=== PATIENT | female | born 1955 | race Caucasian/White ===

== ENCOUNTER → 2017-12-10 | Outpatient (CLI) | payer BC ==
[~2017-12-10] MED LIST: CZR25 PO; INSDGIPEN SC; INSU32MI13 SQ; METF1TAB85 PO; MTR600 PO; OMEG1CHW PO; PENI500T2 PO; PRLSR20 PO; PRVHFAIN INH
--- NOTE | 2017-12-11 14:31 | MAMMOGRAPHY REPORT ---
BILATERAL DIGITAL SCREENING MAMMOGRAM TOMOSYNTHESIS WITH CAD: 12/10/2017 CLINICAL HISTORY: Routine screening. Patient has no complaints. TECHNIQUE: Breast tomosynthesis in addition to standard 2D mammography was performed. Current study w as also evaluated with a Computer Aided Detection (CAD) system. COMPARISON: Comparison is made to exams dated: 03/23/2015 mammogram, 04/27/2013 mammogram, 08/31/2009 ma mmogram - [facility], 06/04/2007, and 11/16/2000 mammogram - [facility] nter. BREAST COMPOSITION: There are scattered areas of fibroglandular density in both breasts. FINDINGS: No suspicious masses, calcifications, or areas of architectural distortion are noted in either breast . There has been no significant interval change compared to prior exams. IMPRESSION: ACR BI-RADS CATEGORY 1: NEGATIVE There is no mammographic evidence of malignancy. A 1 year screening mammogram is recommended.( [id number]) The patient will receive written notification of the results. Some breast cancers are not detected with mammography. A negative mammographic report should not kari y biopsy if a clinically suggestive mass is present. Ruth Foote M.D. ah/:12/10/2017 14:54:40 [employer] Worker: RT Garland(R)(M)(BD), [facility] letter sent: Normal 1/2 BI-RADS Code: ACR BI-RADS Category 1: Negative
== END | disposition home or self-care (01) ==
LOC: C.MAMM 13:12
PROVIDERS: ATTEND Family Medicine
DX: Z12.31 Encounter for screening mammogram for malignant neoplasm of breast (principal)

== ENCOUNTER 2022-06-18 10:37 | Inpatient (IN) ==
[2022-06-18] MEDS ORDERED: SODIUM CHLORIDE 0.9% 1000ML 1,000 ML IV ONE ×2 (11:14→13:10)
--- NOTE | 2022-06-18 11:19 | Emergency Department Note ---
Impression & Plan Right leg weakness, Acute hyperglycemia, Acute UTI, Difficulty in walking ED Provider Note NAME: ISABEL EASTMAN AGE: 66 SEX: F : 1955 ARRIVES VIA: Walk-In INFORMANT: [Patient][] ED PROVIDER(S): [Kali Yung MD] Patient first seen by me at 1100 CHIEF COMPLAINT: Weakness HISTORY OF PRESENT ILLNESS: The patient is a 66-year-old female who states that 1.5 hours ago she moved/slipped and her right leg gave out. She has pressure in her lower back and her right leg feels weak. She did not actually fall. There have been no urinary complaints. She has not had cough, cold or congestion. The patient had something similar happen a few weeks ago however, she felt her symptoms got better much faster than today. Her leg does feel better than it did initially but she still feels weak and has a harder time walking. The patient has no issues with a headache. She does not have issues with her speech or thinking. No right arm weakness. The patient has a history of issues with her back and hip. She has received injections in the hip before, the last injection was about a year ago. PMHx/PSHx: See Below SOCIAL HISTORY: See Below. PHYSICAL EXAM: GENERAL: Patient is in no acute distress. HEENT: No acute trauma, normocephalic atraumatic, mucous membranes moist, no nasal congestion. NECK: No stridor, no adenopathy, no meningismus, trachea is midline. LUNGS: Clear to auscultation bilaterally, no wheeze, no rhonchi, breath sounds equal. HEART: Without murmurs gallops or rubs, regular rate and rhythm. ABDOMEN: Soft, nontender, bowel sounds positive, no peritonitis. EXTREMITIES: No cyanosis or edema, full range of motion of all the joints witho ut pain or difficulty, no signs for acute trauma. NEUROLOGIC: Oriented x 3, no speech slur or facial droop. No lower extremity cerebellar dysfunction or drift. She has 2/4 reflexes at the patella and Achilles bilaterally. Her great toe strength is equal bilaterally, plantarflexion is equal bilaterally. She can walk but seems to have a bit of a limp because of what is described as right leg weakness. SKIN: No rash, no jaundice, no diaphoresis. DIFFERENTIAL DIAGNOSIS: Lumbar disc herniation, lumbar strain, hip strain, fracture, electrolyte imbalance, UTI, stroke, among others. EMERGENCY DEPARTMENT COURSE/PROCEDURES: Prior/Outside records reviewed: None. MEDICAL DECISION MAKING: There is no leukocytosis or concerning anemia. There is a normal platelet count. No coagulopathy. No renal failure. Glucose was high at 347. No concerning liver enzyme elevation. The patient appeared to be in a euthyroid state. Urinalysis was suggestive of potential infection. COVID test returned negative. Brain CT showed no acute bleed or mass effect. Lumbar spine CT showed no acute fracture or significant bony pathology. Chest x-ray per my review did not show CHF or pneumonia. Right hip and pelvis films showed some arthritis, no fracture or bony dislocation per my review. On exam, the patient had a hard time walking because of her right leg weakness but, there was no cerebellar dysfunction with the right lower extremity or right lower extremity drift. She had no deficits in her upper extremities, no speech slur or facial droop. She complained of pain and pressure in the right lumbar back. The patient received IV saline, 2 L. She received IV insulin because of the higher sugar value. She was given oral Keflex because of her potential UTI. I did reassess the patient several times, she persists with some right leg weakness and difficulty ambulating. I am not comfortable with discharge home. At this point, the cause for the isolated right lower extremity weakness is unclear. Subtle stroke is a consideration, disc disease with nerve impingement is a consideration. Transverse myelitis is a possibility. Further testing/work-up is warranted. Of note, the patient was not made a stroke alert given the very isolated right lower extremity weakness. I could not find a significant deficit with testing of the right lower extremity. The only finding of note was difficulty with ambulation. tPA was not felt warranted given the very subtle presentation. I spoke to the patient about my concerns and about the need for further work-up. I did speak with case management, the on-call hospitalist was consulted. DISPOSITION: Patient's findings and presentation warrant a hospital stay and further work-up. Past Med/Surg History Medical History Anxiety Asthma Cataract Depression Diabetes mellitus, type 2 IDDM Fatty liver GERD (gastroesophageal reflux disease) Hemorrhoids History of bursitis RT HIP History of DVT (deep vein thrombosis) LLE - >30 YEARS AGO History of migraine with aura HTN (hypertension) Hyperlipidemia NO MEDS Osteoarthritis Phlebitis H/O Sciatica TMJ click Surgical History H/O nephrostomy History of ankle surgery LEFT X 2, RT X 1 History of arthroscopy of left knee X 2 History of cholecystectomy History of colonoscopy History of D&C MULT History of exploratory laparotomy History of eye surgery RT - as a child History of left cataract surgery History of tooth extraction Nausea and vomiting after administration of anesthetic agent Family History Father Slow to wake up after anesthesia Social History Smoking Status: Former smoker Tobacco Type: Cigarettes Second Hand Exposure: No; Hx Alcohol Use: Yes Hx Substance Use: No Preferred Language: Malagasy Communication Ability: Effective Chemical Processor Required: No Beliefs That Will Affect Care: None Current Living Situation: Spouse Feels Safe at Home: Yes Assistive Devices: Cane and Glasses Allergies Allergies Allergy/AdvReac Type Severity Reaction Status Date / Time psyllium Allergy Severe Anaphylaxis Verified 06/18/22 15:00 latex Allergy Intermediate itching Verified 06/18/22 15:00 pollen extracts Allergy Intermediate SNEEZING, Verified 06/18/22 15:00 CONGESTION walnut Allergy Mild Cough Verified 06/18/22 15:00 meperidine AdvReac Intermediate Gastrointestinal Verified 06/18/22 15:00 Upset onion AdvReac Intermediate Gastrointestinal Verified 06/18/22 15:00 Upset semaglutide [From Ozempic] AdvReac Intermediate Gastrointestinal Verified 06/18/22 15:00 Upset Ngjyryz-[id number]-TmD Reductase AdvReac Intermediate Muscle Pain Verified 06/18/22 15:00 Inhibitor [Cljasrv-Zlx-Bra Reductase Inhibitor] insecticides Allergy Severe Anaphylaxis Uncoded 06/18/22 15:00 Home Meds Home Medications Medication Instructions Recorded Confirmed acetaminophen 500 mg tablet 500 mg PO Q6H PRN Pain 05/20/19 06/18/22 (Tylenol Extra Strength) albuterol sulfate 90 mcg/actuation 2 inh inhalation QID PRN sob 05/20/19 06/18/22 aerosol inhaler hydrochlorothiazide 12.5 mg capsule 12.5 mg PO QA 05/20/19 06/18/22 ibuprofen 600 mg tablet 600 mg PO Q6H PRN Pain 05/20/19 06/18/22 insulin glargine 100 unit/mL (3 18 unit subcut QA 05/20/19 06/18/22 mL) subcutaneous pen (Lantus Solostar U-100 Insulin) losartan 25 mg tablet 25 mg PO [facility] 05/20/19 06/18/22 omeprazole magnesium 20 mg 20 mg PO [facility] 05/20/19 06/18/22 tablet,delayed release (Prilosec OTC) Results & Data (ED) Vital Signs Vital Signs - 24 hr 06/18/22 10:38 06/18/22 12:33 06/18/22 11:24 Temperature 36.2 C L Temperature Source Temporal Artery Scan Pulse Rate 101 H 85 96 H Pulse Rate from SpO2 Sensor 96 H Respiratory Rate 20 14 Respiratory Effort / Characteristics Non-Labored Spontaneous Respiratory Depth Normal Blood Pressure 181/82 H Blood Pressure Mean 115 Pulse Oximetry 100 98 Oxygen Delivery Method Room Air Sepsis New/Unexplained Change in Mental Status N/A Sepsis Action Taken by Nursing No Action Required 06/18/22 11:30 06/18/22 11:54 06/18/22 12:00 Temperature Temperature Source Pulse Rate 104 H 87 Pulse Rate from SpO2 Sensor 103 H 103 H 88 Respiratory Rate 15 14 Respiratory Effort / Characteristics Respiratory Depth Blood Pressure Blood Pressure Mean Pulse Oximetry 98 100 99 Oxygen Delivery Method Sepsis New/Unexplained Change in Mental Status Sepsis Action Taken by Nursing 06/18/22 12:10 06/18/22 12:20 06/18/22 12:30 Temperature Temperature Source Pulse Rate 95 H 89 90 Pulse Rate from SpO2 Sensor 95 H 88 90 Respiratory Rate 12 16 17 Respiratory Effort / Characteristics Respiratory Depth Blood Pressure Blood Pressure Mean Pulse Oximetry 98 98 98 Oxygen Delivery Method Sepsis New/Unexplained Change in Mental Status Sepsis Action Taken by Nursing 06/18/22 12:40 06/18/22 12:47 06/18/22 12:47 Temperature Temperature Source Pulse Rate 92 H 82 Pulse Rate from SpO2 Sensor 92 H 85 Respiratory Rate 15 17 Respiratory Effort / Characteristics Respiratory Depth Blood Pressure 164/68 H Blood Pressure Mean 100 Pulse Oximetry 99 98 Oxygen Delivery Method Sepsis New/Unexplained Change in Mental Status Sepsis Action Taken by Nursing 06/18/22 12:50 06/18/22 13:00 06/18/22 13:00 Temperature Temperature Source Pulse Rate 93 H 98 H Pulse Rate from SpO2 Sensor 94 H 97 H Respiratory Rate 14 17 Respiratory Effort / Characteristics Respiratory Depth Blood Pressure 168/93 H Blood Pressure Mean 118 Pulse Oximetry 100 97 Oxygen Delivery Method Sepsis New/Unexplained Change in Mental Status Sepsis Action Taken by Nursing 06/18/22 13:22 06/18/22 13:34 06/18/22 13:40 Temperature Temperature Source Pulse Rate 86 101 H 88 Pulse Rate from SpO2 Sensor 97 H 88 Respiratory Rate 6 L 19 12 Respiratory Effort / Characteristics Respiratory Depth Blood Pressure Blood Pressure Mean Pulse Oximetry 98 98 Oxygen Delivery Method Sepsis New/Unexplained Change in Mental Status Sepsis Action Taken by Nursing 06/18/22 13:50 06/18/22 14:00 06/18/22 14:00 Temperature Temperature Source Pulse Rate 90 87 Pulse Rate from SpO2 Sensor 90 85 Respiratory Rate 14 15 Respiratory Effort / Characteristics Respiratory Depth Blood Pressure 166/86 H Blood Pressure Mean 112 Pulse Oximetry 99 99 Oxygen Delivery Method Sepsis New/Unexplained Change in Mental Status Sepsis Action Taken by Nursing 06/18/22 14:10 06/18/22 14:20 06/18/22 14:30 Temperature Temperature Source Pulse Rate 94 H 95 H Pulse Rate from SpO2 Sensor 96 H 98 H Respiratory Rate 17 22 Respiratory Effort / Characteristics Respiratory Depth Blood Pressure 162/76 H Blood Pressure Mean 104 Pulse Oximetry 99 97 Oxygen Delivery Method Sepsis New/Unexplained Change in Mental Status Sepsis Action Taken by Nursing 06/18/22 14:30 06/18/22 14:40 06/18/22 14:52 Temperature Temperature Source Pulse Rate 87 86 91 H Pulse Rate from SpO2 Sensor 88 84 80 Respiratory Rate 16 16 31 H Respiratory Effort / Characteristics Respiratory Depth Blood Pressure Blood Pressure Mean Pulse Oximetry 97 99 100 Oxygen Delivery Method Sepsis New/Unexplained Change in Mental Status Sepsis Action Taken by Half-Way Medications Current Medication List: was personally reviewed by me Laboratory Data Attestation: I reviewed the patient's lab results. 06/18/22 11:20 06/18/22 11:20 Lab Results 06/18/22 06/18/22 06/18/22 Range/Units 11:20 11:20 11:20 WBC 6.41 (4.8-10.8) K/ul RBC 5.42 H (4.20-5.40) M/uL Hgb 11.0 L (12.0-16.0) g/dl Hct 36.6 L (37.0-47.0) % MCV 67.5 L (80.0-100.0) fL MCH 20.3 L (25.0-34.0) pg MCHC 30.1 L (32.0-36.0) g/dL RDW Std Deviation 40.0 (36.4-46.3) fL RDW Coeff of Omero 17.3 H (11.5-14.5) % Plt Count 405 H (130-400) K/uL MPV 11.0 (9.4-12.4) fL Immature Gran % (Auto) 0.8 % Neut % (Auto) 58.0 % Lymph % (Auto) 28.2 % [place] % (Auto) 7.0 % Eos % (Auto) 4.8 % Baso % (Auto) 1.2 % Neut # (Auto) 3.71 (1.40-6.50) K/uL Lymph # (Auto) 1.81 (1.2-3.4) K/uL [place] # (Auto) 0.45 (0.11-0.59) K/uL Eos # (Auto) 0.31 (0-0.50) K/uL Baso # (Auto) 0.08 (0-0.2) K/uL Immature Gran # (Auto) 0.05 (0.01-0.20) K/uL RBC Morphology Unremarkable Sodium 134 L (136-145) mmol/L Potassium 3.7 (3.5-5.1) mmol/L Chloride 98 (98-107) mmol/L Carbon Dioxide 26 (21-32) mmol/L Anion Gap 10 (3-11) BUN 13 (6-23) mg/dl Creatinine 0.76 (0.6-1.2) mg/dl Est Cr Clr Drug Dosing 57.9 ml/min Est GFR ( Amer) 94.7 ml/min Est GFR (Non-Af Amer) 81.7 ml/min BUN/Creatinine Ratio 17.1 (10-20) Glucose 347 H* (70-99(Fasting)) mg/dl POC Glucose (70-99) mg/dl Calcium 9.6 (8.5-10.1) mg/dl Magnesium 1.8 (1.7-2.4) mg/dl Total Bilirubin 0.4 (0.2-1.0) mg/dl AST 20 (13-39) U/L ALT 23 (7-52) U/L Alkaline Phosphatase 133 H (34-104) U/L Total Protein 7.7 (6.0-8.3) gm/dl Albumin 4.4 (3.4-5.0) gm/dl Globulin 3.3 (2.5-4.0) gm/dl Albumin/Globulin Ratio 1.3 (0.9-2) TSH 1.022 (0.300-4.500) uIu/ml Urine Color Urine Appearance (Clear) Urine pH (4.5-7.5) Ur Specific [place] (1.000-1.030) Urine Protein (Negative) Urine Glucose (UA) (Negative) Urine Ketones (Negative) Urine Blood (Negative) Urine Nitrite (Negative) Urine Bilirubin (Negative) Urine Urobilinogen (Negative) Ur Leukocyte Esterase (Negative) Urine RBC (0-4) /hpf Urine WBC (0-5) /hpf Ur Epithelial Cells (0-5) /lpf Urine Bacteria (Negative) 06/18/22 06/18/22 Range/Units 13:34 13:52 WBC (4.8-10.8) K/ul RBC (4.20-5.40) M/uL Hgb (12.0-16.0) g/dl Hct (37.0-47.0) % MCV (80.0-100.0) fL MCH (25.0-34.0) pg MCHC (32.0-36.0) g/dL RDW Std Deviation (36.4-46.3) fL RDW Coeff of Omero (11.5-14.5) % Plt Count (130-400) K/uL MPV (9.4-12.4) fL Immature Gran % (Auto) % Neut % (Auto) % Lymph % (Auto) % [place] % (Auto) % Eos % (Auto) % Baso % (Auto) % Neut # (Auto) (1.40-6.50) K/uL Lymph # (Auto) (1.2-3.4) K/uL [place] # (Auto) (0.11-0.59) K/uL Eos # (Auto) (0-0.50) K/uL Baso # (Auto) (0-0.2) K/uL Immature Gran # (Auto) (0.01-0.20) K/uL RBC Morphology Sodium (136-145) mmol/L Potassium (3.5-5.1) mmol/L Chloride (98-107) mmol/L Carbon Dioxide (21-32) mmol/L Anion Gap (3-11) BUN (6-23) mg/dl Creatinine (0.6-1.2) mg/dl Est Cr Clr Drug Dosing ml/min Est GFR ( Amer) ml/min Est GFR (Non-Af Amer) ml/min BUN/Creatinine Ratio (10-20) Glucose (70-99(Fasting)) mg/dl POC Glucose 148 H (70-99) mg/dl Calcium (8.5-10.1) mg/dl Magnesium (1.7-2.4) mg/dl Total Bilirubin (0.2-1.0) mg/dl AST (13-39) U/L ALT (7-52) U/L Alkaline Phosphatase (34-104) U/L Total Protein (6.0-8.3) gm/dl Albumin (3.4-5.0) gm/dl Globulin (2.5-4.0) gm/dl Albumin/Globulin Ratio (0.9-2) TSH (0.300-4.500) uIu/ml Urine Color Yellow Urine Appearance Clear (Clear) Urine pH 5.5 (4.5-7.5) Ur Specific [place] 1.007 (1.000-1.030) Urine Protein Negative (Negative) Urine Glucose (UA) 2+ H (Negative) Urine Ketones Negative (Negative) Urine Blood Negative (Negative) Urine Nitrite Negative (Negative) Urine Bilirubin Negative (Negative) Urine Urobilinogen Negative (Negative) Ur Leukocyte Esterase Trace H (Negative) Urine RBC 0-4 (0-4) /hpf Urine WBC 10-30 H (0-5) /hpf Ur Epithelial Cells 5-10 H (0-5) /lpf Urine Bacteria 1+ H (Negative) Administered Medications Discontinued Medications Aspirin (Aspirin 81 Mg Chew) 324 mg PO NOW STA Stop: 06/18/22 15:48 Last Admin: 06/18/22 16:31 Dose: 324 mg Documented By: BRITTANY Cephalexin HCl (Cephalexin 250 Mg Cap) 500 mg PO NOW ONE Stop: 06/18/22 14:16 Last Admin: 06/18/22 15:33 Dose: 500 mg Documented By: AM Sodium Chloride (Nss 1000ml) 1,000 mls @ 999 mls/hr IV .Q1H1M ONE Stop: 06/18/22 12:14 Last Infusion: 06/18/22 13:47 Dose: 0 mls/hr Documented By: Admin: 06/18/22 11:29 Dose: 999 mls/hr Documented By: AM Sodium Chloride (Nss 1000ml) 1,000 mls @ 999 mls/hr IV .Q1H1M ONE Stop: 06/18/22 14:10 Last Infusion: 06/18/22 15:36 Dose: 0 mls/hr Documented By: Admin: 06/18/22 13:47 Dose: 999 mls/hr Documented By: AM Insulin Human Regular (Novolin-R Insulin Per Unit Charge) 8 units IV NOW STA Stop: 06/18/22 12:17 Last Admin: 06/18/22 12:45 Dose: 8 units Documented By: AM Co-signed By: SALTY Ioversol (Optiray 320 500ml) 118 ml IV ONCE ONE Stop: 06/18/22 16:08 Last Admin: 06/18/22 16:10 Dose: 118 ml Documented By: AVANI Imaging Data Radiologist's Impression: Hip/Pelvis X-Ray 06/18/22 11:12 XR hip RT 2V w pelvis HISTORY: 66 years-old Female pain, slipped acute right-sided hip pain status post fall COMPARISON: CT lumbar spine of same day, CT abdomen and pelvis 10/01/2017 TECHNIQUE: AP view of the pelvis with 2 views of the right hip FINDINGS: Mild osteoarthritis of the hips. No acute fracture, dislocation or avascular necrosis. Unremarkable soft tissues. IMPRESSION: No acute fracture or dislocation. ACT 112: Negative or not required by law. The above report was generated using voice recognition software. It may contain grammatical, syntax or spelling errors. Electronically signed by: Silver Stallworth M.D. 06/18/2022 2:[address] 06/18/22 11:12 CT lumbar spine wo con CLINICAL HISTORY: slipped low back pain, right leg weak TECHNIQUE: Multidetector row helical CT of the lumbar spine was performed without administration of intravenous contrast. Coronal and sagittal reformations were obtained. Automated dose lowering techniques and/or adjustment according to patient size were utilized for this exam. CT DOSE: 1186.66 mGy.cm Comparison: None available at the time of this dictation. FINDINGS: For counting purposes, the last complete intervertebral disc space is considered L5-S1. No acute fractures are identified. Degenerative changes are noted in the visualized spine. Vertebral body alignment is within normal limits. Surrounding soft tissues are unremarkable. IMPRESSION: No evidence of acute bony injury. ACT 112: Negative or not required by law. Electronically signed by: Delroy Mcfadden M.D. 06/18/2022 11:59 AM Chest X-Ray 06/18/22 11:13 XR chest 1V not portable HISTORY: weakness COMPARISON: None. FINDINGS: The lungs are clear. Cardiac silhouette is normal in size. No pleural effusions. No pneumothorax. IMPRESSION: No acute process. ACT 112: Negative or not required by law. Electronically signed by: Raudel De La Cruz M.D. 06/18/2022 1:[address] 06/18/22 11:14 CT OF THE HEAD WITHOUT CONTRAST CLINICAL HISTORY: leg weakness COMPARISON STUDY: No previous studies for comparison. TECHNIQUE: Helical axial images of the head were obtained without IV contrast. Automated exposure control was utilized for the study. A dose lowering technique was utilized adhering to the principles of ALARA. FINDINGS: No acute intracranial hemorrhage, midline shift or mass effect is present. White matter hypodensity suggests small vessel disease. The ventricular system is unremarkable. The basal cisterns are patent. No extra-axial collections are present. There are no findings to suggest acute dural sinus thrombosis or acute territorial infarct. No significant calvarial abnormalities are present. Visualized portions of the sinuses and mastoid air cells are clear. IMPRESSION: No acute intracranial findings. ACT 112: Negative or not required by law. Electronically signed by: Bob Strong M.D. 06/18/2022 12:11 PM Discharge Plan Visit Data Chief Complaint: Weakness Stated Complaint: WEAKNESS, R LEG PAIN ED Provider: Kali Yung Discharge Problem: Right leg weakness, Acute hyperglycemia, Acute UTI, Difficulty in walking Patient Disposition: Admitted As Inpatient Condition: Fair Discharge Instructions Interventions: ED Discharge Assessment Last Done: 06/18/22 17:50
--- NOTE | 2022-06-18 12:00 | CT Scan Report ---
CT lumbar spine wo con CLINICAL HISTORY: slipped low back pain, right leg weak TECHNIQUE: Multidetector row helical CT of the lumbar spine was performed without administration of i ntravenous contrast. Coronal and sagittal reformations were obtained. Automated dose lowering techniq ues and/or adjustment according to patient size were utilized for this exam. CT DOSE: 1186.66 mGy.cm Comparison: None available at the time of this dictation. FINDINGS: For counting purposes, the last complete intervertebral disc space is considered L5-S1. No acute fractures are identified. Degenerative changes are noted in the visualized spine. Vertebral body alignment is within normal limits. Surrounding soft tissues are unremarkable. IMPRESSION: No evidence of acute bony injury. ACT 112: Negative or not required by law. Electronically signed by: Delroy Mcfadden M.D. 06/18/2022 11:59 AM
--- NOTE | 2022-06-18 12:12 | CT Scan Report ---
CT OF THE HEAD WITHOUT CONTRAST CLINICAL HISTORY: leg weakness COMPARISON STUDY: No previous studies for comparison. TECHNIQUE: Helical axial images of the head were obtained without IV contrast. Automated exposure con trol was utilized for the study. A dose lowering technique was utilized adhering to the principles o f ALARA. FINDINGS: No acute intracranial hemorrhage, midline shift or mass effect is present. White matter hyp odensity suggests small vessel disease. The ventricular system is unremarkable. The basal cisterns ar e patent. No extra-axial collections are present. There are no findings to suggest acute dural sinus thrombosis or acute territorial infarct. No significant calvarial abnormalities are present. Visualiz ed portions of the sinuses and mastoid air cells are clear. IMPRESSION: No acute intracranial findings. ACT 112: Negative or not required by law. Electronically signed by: Bob Strong M.D. 06/18/2022 12:11 PM
[2022-06-18 12:16] LABS: Basophils # (auto) 0.08 K/uL (0-0.2); Basophils % (auto) 1.2 %; Eosinophils # (auto) 0.31 K/uL (0-0.50); Eosinophils % (auto) 4.8 %; Hematocrit (blood only) 36.6 % (37.0-47.0); Immature Granulocytes # (auto) 0.05 K/uL (0.01-0.20); Immature Granulocytes % (auto) 0.8 %; Lymphocytes # (auto) 1.81 K/uL (1.2-3.4); Lymphocytes % (auto) 28.2 %; Mean Corpuscular Hemoglobin 20.3 pg (25.0-34.0); Mean Corpuscular Hgb Conc 30.1 g/dL (32.0-36.0); Mean Corpuscular Volume 67.5 fL (80.0-100.0); Monocytes # (auto) 0.45 K/uL (0.11-0.59); Neutrophils # (auto) 3.71 K/uL (1.40-6.50); RDW Coefficient of Variation 17.3 % (11.5-14.5); Red Blood Count 5.42 M/uL (4.20-5.40); White Blood Count 6.41 K/ul (4.8-10.8)
[2022-06-18] MEDS ORDERED: NovoLIN-R INSULIN PER UNIT CHARGE IV STA (12:16)
[2022-06-18 12:20] LABS: Albumin Globulin Ratio 1.3 (0.9-2); Albumin Level 4.4 gm/dl (3.4-5.0); BUN Creatinine Ratio 17.1 (10-20); Bilirubin,Total 0.4 mg/dl (0.2-1.0); Calcium 9.6 mg/dl (8.5-10.1); Creatinine Clr Calc Pharmacy 57.9 ml/min; Est GFR (African American) 94.7 ml/min; Est GFR (Non-African American) 81.7 ml/min; Globulin 3.3 gm/dl (2.5-4.0); Potassium 3.7 mmol/L (3.5-5.1); Total Protein 7.7 gm/dl (6.0-8.3)
[2022-06-18 12:25] LABS: Platelet Count 405 K/uL (130-400)
[2022-06-18 12:32] LABS: Magnesium 1.8 mg/dl (1.7-2.4)
[2022-06-18 12:49] LABS: RBC Morphology Unremarkable
--- NOTE | 2022-06-18 13:34 | XRay Report ---
XR chest 1V not portable HISTORY: weakness COMPARISON: None. FINDINGS: The lungs are clear. Cardiac silhouette is normal in size. No pleural effusions. No pneumot horax. IMPRESSION: No acute process. ACT 112: Negative or not required by law. Electronically signed by: Raudel De La Cruz M.D. 06/18/2022 1:33 PM
[2022-06-18 13:51] LABS: Appearance Urine Clear (Clear); Bilirubin Urine Negative (Negative); Blood Urine Negative (Negative); Color Urine Yellow; Glucose Urine UA 2+ (Negative); Ketones Urine Negative (Negative); Leukocyte Esterase Urine Trace (Negative); Nitrite Urine Negative (Negative); Protein Urine Negative (Negative); Specific Gravity Urine 1.007 (1.000-1.030); Urobilinogen Urine Negative (Negative); pH Urine 5.5 (4.5-7.5)
[2022-06-18 14:06] LABS: Bacteria Urine 1+ (Negative); RBC Urine 0-4 /hpf (0-4)
--- NOTE | 2022-06-18 14:06 | XRay Report ---
XR hip RT 2V w pelvis HISTORY: 66 years-old Female pain, slipped acute right-sided hip pain status post fall COMPARISON: CT lumbar spine of same day, CT abdomen and pelvis 10/01/2017 TECHNIQUE: AP view of the pelvis with 2 views of the right hip FINDINGS: Mild osteoarthritis of the hips. No acute fracture, dislocation or avascular necrosis. Unremarkable s oft tissues. IMPRESSION: No acute fracture or dislocation. ACT 112: Negative or not required by law. The above report was generated using voice recognition software. It may contain grammatical, syntax o r spelling errors. Electronically signed by: Silver Stallworth M.D. 06/18/2022 2:04 PM
[2022-06-18] MEDS ORDERED: cephALEXin 250 MG CAP PO ONE (14:15)
--- NOTE | 2022-06-18 15:33 | History & Physical Report ---
Date of Service June 18, 2022 Assessment & Plan (1) Right leg weakness: Plan: Patient is 66-year-old female with PMH HTN, dyslipidemia, insulin-dependent DM II, GERD, NAFLD presented to ER with complaint onset of right leg weakness started this morning In ER patient had difficulty with ambulating secondary to reported right leg weakness. CT head: No acute intracranial findings Lumbar spine CT: No acute fractures are identified. Degenerative changes are noted in the visualized spine. Vertebral body alignment is within normal limits. Surrounding soft tissues are unremarkable. Hip/pelvis x-ray: No acute fracture or dislocation DDX: TIA, CVA, Lumbar spine DDD Tele to monitor for arrhythmias Obtain EKG and troponin Lipid panel, A1c in am CTA Head and Neck MRI brain MRI L-spine If MRI positive for CVA plan to obtain echo with bubble study PT/OT consult Intolerance to statin Given 324mg aspirin Start aspirin Neurology consult (2) Abnormal finding on urinalysis: Plan: UA: Trace leuk esterase, 10-30 WBC, 1+ bacteria, 5-10 epithelial cells This UA was not a clean-catch specimen Patient without urinary symptoms In ER given p.o. Keflex Urine culture pending Will await urine culture prior to additional antibiotics (3) Diabetes mellitus, type 2: Plan: Insulin-dependent A1c 10.0 on 12/10/2021 Continue home Lantus NovoLog sliding scale per protocol Monitor BSG's, may need to further adjust (4) HTN (hypertension): Plan: Continue losartan, HCTZ (5) Dyslipidemia: Plan: Intolerant to statins Lipid panel in a.m. (6) GERD (gastroesophageal reflux disease): Plan: Continue PPI DVT Prophylaxis SCDs Full Code as per discussion with pt Follows with Dr Scott Colindres for routine care Pt was seen and care coordinated with Dr Mueller. See addendum I spent a total of 75 minutes reviewing notes, outpatient records, labs, medication, coordinating, documenting and providing care for this patient excluding time spent in the performance of separately billed services. History of Present Illness Chief Complaint: Right leg weakness Primary Care Provider: Scott Colindres DO Patient is 66-year-old female with PMH HTN, dyslipidemia, insulin-dependent DM II, GERD, NAFLD presented to ER with complaint of right leg weakness. Patient states this morning she woke up and was feeling fine. She reports she showered and then took her morning medicines. When she was attempting to get dressed she had onset of right leg weakness described from right hip to right ankle. Patient reports has some pressure to right lumbar spine. As she was getting dressed she felt her right leg gave out. Patient states since has been having right leg weakness and having difficulty walking. He also feels like she is leaning to the right. Denies speech changes, facial drooping. Patient states couple weeks ago had episode of right leg weakness that occurred while showering that resolved within an hour after sitting. Patient denies any known injury or trauma. Denies leg paresthesias. Denies dysuria, hematuria, urinary frequency, or urgency. Denies fever/chills, diaphoresis, N/V/D/C, CLOUD, dizziness, syncope, vision changes, neck pain, CP, SOB, orthopnea, palpitations, cough, sore throat, choking, otalgia, rhinorrhea, abdominal pain, extremity edema, rashes. In ER patient had difficulty with ambulating secondary to reported right leg weakness. Allergies Allergy/AdvReac Type Severity Reaction Status Date / Time psyllium Allergy Severe Anaphylaxis Verified 06/18/22 15:00 latex Allergy Intermediate itching Verified 06/18/22 15:00 pollen extracts Allergy Intermediate SNEEZING, Verified 06/18/22 15:00 CONGESTION walnut Allergy Mild Cough Verified 06/18/22 15:00 meperidine AdvReac Intermediate Gastrointestinal Verified 06/18/22 15:00 Upset onion AdvReac Intermediate Gastrointestinal Verified 06/18/22 15:00 Upset semaglutide [From Ozempic] AdvReac Intermediate Gastrointestinal Verified 06/18/22 15:00 Upset Mitxqbn-FRJ-ImL Reductase AdvReac Intermediate Muscle Pain Verified 06/18/22 15:00 Inhibitor [Bjnxjzr-Hqg-Dab Reductase Inhibitor] insecticides Allergy Severe Anaphylaxis Uncoded 06/18/22 15:00 Home Medications Medication Instructions Recorded Confirmed Type acetaminophen 500 mg tablet 500 mg PO Q6H PRN Pain 05/20/19 06/18/22 History (Tylenol Extra Strength) albuterol sulfate 90 mcg/actuation 2 inh inhalation QID PRN sob 05/20/19 History aerosol inhaler hydrochlorothiazide 12.5 mg capsule 12.5 mg PO QAM 05/20/19 06/18/22 History ibuprofen 600 mg tablet 600 mg PO Q6H PRN Pain 05/20/19 06/18/22 History insulin glargine 100 unit/mL (3 18 unit subcut QAM 05/20/19 06/18/22 History mL) subcutaneous pen (Lantus Solostar U-100 Insulin) losartan 25 mg tablet 25 mg PO QAM 05/20/19 06/18/22 History omeprazole magnesium 20 mg 20 mg PO QAM 05/20/19 06/18/22 History tablet,delayed release (Prilosec OTC) Past Med/Surg History Medical History Anxiety Asthma Cataract Depression Diabetes mellitus, type 2 IDDM Fatty liver GERD (gastroesophageal reflux disease) Hemorrhoids History of bursitis RT HIP History of DVT (deep vein thrombosis) LLE - >30 YEARS AGO History of migraine with aura HTN (hypertension) Hyperlipidemia NO MEDS Osteoarthritis Phlebitis H/O Sciatica TMJ click Surgical History H/O nephrostomy History of ankle surgery LEFT X 2, RT X 1 History of arthroscopy of left knee X 2 History of cholecystectomy History of colonoscopy History of D&C MULT History of exploratory laparotomy History of eye surgery RT - as a child History of left cataract surgery History of tooth extraction Nausea and vomiting after administration of anesthetic agent Family History Father Slow to wake up after anesthesia Social History Smoking Status: Former smoker Tobacco Type: Cigarettes Second Hand Exposure: No; Do You Dip or Chew Tobacco: No; Tobacco Cessation Education Requested by Patient: No Hx Alcohol Use: Yes Alcohol type: wine Hx Substance Use: No Preferred Language: Latvian Communication Ability: Effective Production Crew Supervisor Required: No Beliefs That Will Affect Care: None Current Living Situation: Family Feels Safe at Home: Yes Assistive Devices: Cane and Glasses Review of Systems Review of Systems: All systems reviewed & are unremarkable except as noted in HPI & below Physical Exam Physical Exam: General: no distress, WDWN Head: normocephalic, atraumatic Eyes: PERRL, EOM's intact, no nystagmus, conjunctiva non-injected, anicteric ENT: normal inspection external ears, nose, mucous membranes moist Neck: supple, trachea midline Lungs: clear, no respiratory distress, no wheezing/rhonchi/rales CV: RRR, no murmur, no JVD, no pretibial edema Abd: normal BS, soft, non-tender Ext: no cyanosis, no calf tenderness Neuro: A&O x 3, normal affect, face is strong and symmetric, hearing grossly intact, soft palate elevates symmetrically, no dysarthria, shoulder shrug intact, tongue is midline, normal movement, no fasciculations Strength RLE 4/5 compared to 5/5 LLE. BUE 5/5 strength. Skin: warm, dry Results & Data Results & Data ([facility]) Vital Signs (Past 12 Hours) Vital Signs Temp Pulse Resp BP Pulse Ox O2 Del Method 06/18/22 13:00 98 H 17 97 06/18/22 13:00 168/93 H 06/18/22 12:50 93 H 14 100 06/18/22 12:47 82 17 98 06/18/22 12:47 164/68 H 06/18/22 12:40 92 H 15 99 06/18/22 12:30 90 17 98 06/18/22 12:20 89 16 98 06/18/22 12:10 95 H 12 98 06/18/22 12:00 87 14 99 06/18/22 11:54 100 06/18/22 11:30 104 H 15 98 06/18/22 11:24 96 H 14 98 06/18/22 12:33 85 06/18/22 10:38 36.2 C L 101 H 20 181/82 H 100 Room Air Laboratory Results Short CBC 06/18/22 Range/Units 11:20 WBC 6.41 (4.8-10.8) K/ul Hgb 11.0 L (12.0-16.0) g/dl Hct 36.6 L (37.0-47.0) % Plt Count 405 H (130-400) K/uL BMP 06/18/22 11:20 Sodium 134 L Potassium 3.7 Chloride 98 Carbon Dioxide 26 BUN 13 Creatinine 0.76 Glucose 347 H* Calcium 9.6 Liver Function 06/18/22 Range/Units 11:20 Total Bilirubin 0.4 (0.2-1.0) mg/dl AST 20 (13-39) U/L ALT 23 (7-52) U/L Alkaline Phosphatase 133 H (34-104) U/L Albumin 4.4 (3.4-5.0) gm/dl Urine 06/18/22 Range/Units 13:34 Urine Color Yellow Urine Appearance Clear (Clear) Urine pH 5.5 (4.5-7.5) Ur Specific [place] 1.007 (1.000-1.030) Urine Protein Negative (Negative) Urine Glucose (UA) 2+ H (Negative) Diagnostic Findings Hip/Pelvis X-Ray 06/18/22 11:12 XR hip RT 2V w pelvis HISTORY: 66 years-old Female pain, slipped acute right-sided hip pain status post fall COMPARISON: CT lumbar spine of same day, CT abdomen and pelvis 10/01/2017 TECHNIQUE: AP view of the pelvis with 2 views of the right hip FINDINGS: Mild osteoarthritis of the hips. No acute fracture, dislocation or avascular necrosis. Unremarkable soft tissues. IMPRESSION: No acute fracture or dislocation. ACT 112: Negative or not required by law. The above report was generated using voice recognition software. It may contain grammatical, syntax or spelling errors. Electronically signed by: Silver Stallworth M.D. 06/18/2022 2:[address] 06/18/22 11:12 CT lumbar spine wo con CLINICAL HISTORY: slipped low back pain, right leg weak TECHNIQUE: Multidetector row helical CT of the lumbar spine was performed without administration of intravenous contrast. Coronal and sagittal reformations were obtained. Automated dose lowering techniques and/or adjustment according to patient size were utilized for this exam. CT DOSE: 1186.66 mGy.cm Comparison: None available at the time of this dictation. FINDINGS: For counting purposes, the last complete intervertebral disc space is considered L5-S1. No acute fractures are identified. Degenerative changes are noted in the visualized spine. Vertebral body alignment is within normal limits. Surrounding soft tissues are unremarkable. IMPRESSION: No evidence of acute bony injury. ACT 112: Negative or not required by law. Electronically signed by: Delroy Mcfadden M.D. 06/18/2022 11:59 AM Chest X-Ray 06/18/22 11:13 XR chest 1V not portable HISTORY: weakness COMPARISON: None. FINDINGS: The lungs are clear. Cardiac silhouette is normal in size. No pleural effusions. No pneumothorax. IMPRESSION: No acute process. ACT 112: Negative or not required by law. Electronically signed by: Raudel De La Cruz M.D. 06/18/2022 1:[address] 06/18/22 11:14 CT OF THE HEAD WITHOUT CONTRAST CLINICAL HISTORY: leg weakness COMPARISON STUDY: No previous studies for comparison. TECHNIQUE: Helical axial images of the head were obtained without IV contrast. Automated exposure control was utilized for the study. A dose lowering technique was utilized adhering to the principles of ALARA. FINDINGS: No acute intracranial hemorrhage, midline shift or mass effect is present. White matter hypodensity suggests small vessel disease. The ventricular system is unremarkable. The basal cisterns are patent. No extra-axial collections are present. There are no findings to suggest acute dural sinus thrombosis or acute territorial infarct. No significant calvarial abnormalities are present. Visualized portions of the sinuses and mastoid air cells are clear. IMPRESSION: No acute intracranial findings. ACT 112: Negative or not required by law. Electronically signed by: Bob Strong M.D. 06/18/2022 12:11 PM Supervising Physician Co-Signing Physician Notes Patient was seen and examined independently. Chart reviewed. Case discussed with PREETHI. Agree with assessment and plan as outlined above
[2022-06-18] MEDS ORDERED: ASPIRIN 81 MG CHEW PO STA (15:47)
[2022-06-18] MEDS ORDERED: OPTIRAY 320 500ml IV ONE (16:07)
--- NOTE | 2022-06-18 16:30 | CT Scan Report ---
HEAD & NECK CTA HISTORY: Right lower extremity weakness. TECHNIQUE: Multiaxial CT images of the head were performed following the intravenous administration o f contrast to evaluate the major cerebral vessels. Multiaxial CT images of the neck were also perform ed following the intravenous administration of contrast to evaluate the major cervical vessels. Maxim um intensity projection images were also obtained. A dose lowering technique was utilized adhering to the principles of ALARA. COMPARISON: Head CT 06/18/2022. FINDINGS: There is no mass, hematoma, midline shift, or acute infarct. Visualized intracranial internal carotid arteries, distal vertebral arteries, and basilar artery are widely patent. There is no significant s tenosis, occlusion, or aneurysm seen within the bilateral ACAs, MCAs, or hose tubing backer. The major dural venous sinuses are patent. The aortic arch and proximal great vessels are widely patent. There is no significant stenosis, occ lusion, or dissection identified within the bilateral common carotid, internal carotid, or vertebral arteries. There are 2 subcentimeter nodules within the right upper lobe on image 43 which measure up to 3 mm. Mild calcified plaque within the bilateral carotid bifurcations. Incidental note is made of an aberrant right subclavian artery. IMPRESSION: 1. No significant stenosis, occlusion, or aneurysm within the [place]. 2. No significant stenosis, occlusion, or dissection identified within the carotid or vertebral arter ies. 3. There are 2 subcentimeter indeterminate pulmonary nodule within the right upper lobe measure up to 3 mm. Please refer to below summary of Fleischner criteria recommendations for follow-up of incidental CT n odules (Samanta Hsieh, Guidelines for management of small pulmonary nodules detected on CT scans: A sta tement from the Fleischner Society, Radiology 237: [phone].) SOLID NODULES Solitary nodule size: <6 mm * Low risk patients: no follow-up needed * high risk patients: optional CT at 12 months Solitary nodule size: 6-8 mm * Low risk patients: follow-up at 6-12 months, then consider further follow-up at 18-24 months * high risk patients: initial follow-up CT at 6-12 months and then at 18-24 months if no change Solitary nodule size: >8 mm * either low or high risk patients - consider follow-up CT at 3 months, and/or CT-PET, and/or biopsy Multiple nodules size: <6 mm * Low risk patients: no routine follow-up * high risk patients: optional CT at 12 months Multiple nodules size: 6-8 mm * Low risk patients: follow-up at 3-6 months, then consider further follow-up at 18-24 months * high risk patients: follow-up at 3-6 months, then at 18-24 months if no change Multiple nodules size: >8 mm * Low risk patients: follow-up at 3-6 months, then consider further follow-up at 18-24 months * high risk patients: follow-up at 3-6 months, then at 18-24 months if no change Note: newly detected indeterminate nodule in persons 35 years of age or older. * Low risk patients: minimal or absent history of smoking and/or other known risk factors * high risk patients: history of smoking or of other known risk factors (e.g. first degree relative with lung cancer, or exposure to asbestos, radon, uranium) * if a nodule up to 8 mm is partly solid or is ground glass further follow-up is required after 24 m onths to exclude possible slow growing adenocarcinoma (GUNNER) SUBSOLID NODULES Solitary pure ground-glass nodule * nodule size <6 mm - no CT follow-up required * nodule size >=6 mm - follow-up CT at 6-12 months, then every 2 years until 5 years Solitary part-solid nodule * nodule size <6 mm - no CT follow-up required * nodule size >=6 mm - follow-up CT at 3-6 months. If unchanged, and solid component remains <6 mm, then annual follow-up for 5 years Multiple subsolid nodules * nodule size <6 mm - follow-up CT at 3-6 months, consider further follow-up at 2 and 4 years if sta ble * nodule size >=6 mm - follow-up CT at 3-6 months, subsequent management based on the most suspiciou s nodule(s) ACT 112: Negative or not required by law. Electronically signed by: Raudel De La Cruz M.D. 06/18/2022 4:29 PM
[2022-06-18 17:02] LABS: Appearance Urine Clear (Clear); Bacteria Urine Automated 1+ (Negative); Bilirubin Urine Negative (Negative); Blood Urine Negative (Negative); Color Urine Yellow; Epithelial Cell Urine Auto 20-30 /lpf (0-5); Glucose Urine UA Negative (Negative); Ketones Urine Negative (Negative); Leukocyte Esterase Urine Trace (Negative); Nitrite Urine Negative (Negative); Protein Urine Negative (Negative); RBC Urine Automated 0-4 /hpf (0-4); Specific Gravity Urine 1.015 (1.000-1.030); Urobilinogen Urine Negative (Negative); pH Urine 6.5 (4.5-7.5)
[2022-06-18 17:29] LABS: Partial Thromboplastin Ratio 0.9; Partial Thromboplastin Time 25.1 Seconds (21.0-31.0); Prothrombin Time 10.8 Seconds (9.0-12.0)
--- NOTE | 2022-06-18 18:47 | Magnetic Resonance Report ---
Brain MRI WITHOUT CONTRAST HISTORY: r sided weakness r/o stroke TECHNIQUE: Multiplanar multisequence MRI of the brain was performed without the use of contrast. COMPARISON STUDY: None. FINDINGS: Subtle area of restricted diffusion within the left periventricular white matter best seen on image 16 of 46. This favors an acute infarct. This measures approximately 3.0 x 0.8 cm. The midlin e structures are intact. The paranasal sinuses are clear. The mastoid air cells are clear. The ventri cles and sulci are within normal limits for age. There is no mass, hematoma, midline shift. The major vascular flow-voids at the skull base are well maintained. Prior bilateral lens replacement. There a re few scattered punctate foci of T2 hyperintensity seen within the white matter of the supratentoria l brain. These are nonspecific but favor mild microvascular ischemic change. IMPRESSION: 1. Subtle area of restricted diffusion within the left periventricular white matter likely representi ng an acute infarct. 2. Presumed mild microvascular ischemic changes. ACT 112: Negative or not required by law. Electronically signed by: Raudel De La Cruz M.D. 06/18/2022 6:46 PM
[2022-06-18] MEDS ORDERED: ONDANSETRON INJ 2 MG/ML 2 ML VIAL IV PRN (19:02)
[2022-06-18] MEDS ORDERED: DEXTROSE 50% 50 ML SYRINGE IV PRN (19:02)
[2022-06-18] MEDS ORDERED: GLUCAGON FOR INJ 1 MG VIAL SQ PRN (19:02)
[2022-06-18] MEDS ORDERED: GLUCOSE 40% GEL 15 GM TUBE PO PRN (19:02)
[2022-06-18] MEDS ORDERED: ALBUTEROL HFA 8 GM INHALER INH PRN (19:02)
[2022-06-18] MEDS ORDERED: PHARMACIST DISCHARGE MED REC CONSULT PRN (19:02)
[2022-06-18] MEDS ORDERED: CARBOHYDRATES FOR HYPOGLYCEMIA PO PRN (19:02)
[2022-06-18] MEDS ORDERED: GLUCOSE 10 TAB/TUBE PO PRN (19:02)
[2022-06-18] MEDS: INSULIN ASPART PER UNIT SC SCH (20:37)
[2022-06-19 07:13] LABS: Basophils # (auto) 0.07 K/uL (0-0.2); Basophils % (auto) 0.8 %; Eosinophils # (auto) 0.32 K/uL (0-0.50); Eosinophils % (auto) 3.6 %; Hematocrit (blood only) 31.9 % (37.0-47.0); Hemoglobin 9.5 g/dl (12.0-16.0); Immature Granulocytes # (auto) 0.03 K/uL (0.01-0.20); Immature Granulocytes % (auto) 0.3 %; Lymphocytes # (auto) 2.78 K/uL (1.2-3.4); Lymphocytes % (auto) 31.5 %; Mean Corpuscular Hemoglobin 19.8 pg (25.0-34.0); Mean Corpuscular Hgb Conc 29.8 g/dL (32.0-36.0); Mean Corpuscular Volume 66.3 fL (80.0-100.0); Monocytes # (auto) 0.54 K/uL (0.11-0.59); Monocytes % (auto) 6.1 %; Neutrophils # (auto) 5.09 K/uL (1.40-6.50); Neutrophils % (auto) 57.7 %; RDW Coefficient of Variation 17.3 % (11.5-14.5); RDW Standard Deviation 40.1 fL (36.4-46.3); Red Blood Count 4.81 M/uL (4.20-5.40); White Blood Count 8.83 K/ul (4.8-10.8)
[2022-06-19 07:24] LABS: Mean Platelet Volume 10.5 fL (9.4-12.4); Platelet Count 381 K/uL (130-400)
--- NOTE | 2022-06-19 07:34 | Magnetic Resonance Report ---
MRI OF THE LUMBAR SPINE WITHOUT CONTRAST CLINICAL HISTORY: RLE weakness, lumbar discomfort COMPARISON STUDY: Lumbar spine CT June 18, 2022. TECHNIQUE: Utilizing a 1.5 Veronica magnet and dedicated coil, multiplanar, multiecho imaging of the [facility] spine was performed without IV contrast. FINDINGS: For purposes of numbering on this exam, the L5-S1 disc space is assigned to axial image 23 of 30. S1 represents a transitional vertebra which is partially lumbarized. When utilizing this numbering schem e, there is 3 mm of anterolisthesis of L5 on S1. Vertebral body heights are maintained. There is no f racture. There is no suspicious marrow replacement. Mild multilevel degenerative disc disease and mod erate to severe facet arthrosis is present. There is no intracanalicular mass or fluid collection. Co nus terminates at the mid L2 level. Paravertebral soft tissues are unremarkable. L1-2: The central canal and neural foramen are patent. L2-3: The central canal and neural foramen are patent. L3-4: The central canal and neural foramen are patent. L4-5: There is moderate facet arthrosis with mild disc bulge. The central canal and neural foramen ar e patent. L5-S1: There is grade one anterolisthesis. There is severe facet arthrosis. Note is made of moderate to severe bilateral neural foraminal stenosis predominantly due to facet arthrosis.. IMPRESSION: 1. No central canal stenosis. Moderate to severe bilateral neural foraminal stenosis at L5-S1 predomi nantly due to facet arthrosis. 2. Grade I anterolisthesis of L5 on S1 due to facet arthrosis. 3. Transitional vertebra at the lumbosacral junction. Please see above numbering scheme of the lumbar spine. ACT 112: Negative or not required by law. Electronically signed by: Bob Strong M.D. 06/19/2022 7:33 AM
[2022-06-19 07:35] LABS: Estimated Average Glucose 275 mg/dl; Hemoglobin A1C 11.2 % (4.5-5.6)
[2022-06-19 07:37] LABS: Microcytosis Present; Ovalocytes 1+
[2022-06-19 07:45] LABS: Anion Gap 9 (3-11); BUN Creatinine Ratio 20.4 (10-20); Blood Urea Nitrogen 11 mg/dl (6-23); Calcium 8.9 mg/dl (8.5-10.1); Carbon Dioxide 25 mmol/L (21-32); Chloride 105 mmol/L (98-107); Cholesterol 250 mg/dl (0-200); Creatinine Clr Calc Pharmacy 81.5 ml/min; Est GFR (Non-African American) 98.3 ml/min; Glucose 201 mg/dl (70-99(Fasting)); HDL Cholesterol 36 mg/dl; Sodium 139 mmol/L (136-145); Triglycerides 647 mg/dl (0-150)
[2022-06-19 07:59] LABS: Chol HDL Ratio 6.9 (0-5)
[2022-06-19] MEDS ORDERED: POTASSIUM CHLORIDE CRTAB 20 MEQ TABCR PO STA (08:06)
[2022-06-19] MEDS: INSULIN ASPART PER UNIT SC SCH ×4 (08:07→20:57)
[2022-06-19] MEDS: PANTOprazole 40 MG TAB PO SCH (08:08)
[2022-06-19] MEDS: ASPIRIN 81 MG ECTAB PO SCH (08:08)
[2022-06-19] MEDS: LANTUS PER UNIT CHARGE SQ SCH (08:08)
[2022-06-19] MEDS ORDERED: cefTRIAXone SODIUM 2,000 MG in DEXTROSE 5% 50 ML IV SCH (08:30)
[2022-06-19] MEDS ORDERED: hydroCHLOROthiazide 25 MG TAB PO SCH (09:00)
[2022-06-19] MEDS ORDERED: LOSARTAN POTASSIUM 25 MG TAB PO SCH (09:00)
[2022-06-19] MEDS: FENOFIBRATE NANOCRYSTALLIZED 145 MG TABLET PO SCH (09:15)
[2022-06-19] MEDS: SODIUM CHLORIDE 0.9% 1000ML 1,000 ML IV SCH ×2 (10:31→18:20)
--- NOTE | 2022-06-19 10:54 | CT Scan Report ---
CT OF THE HEAD WITHOUT CONTRAST CLINICAL HISTORY: worsening stroke symptoms COMPARISON STUDY: Head CT, CTA of the head and MRI of the brain June 18, 2022. CT DOSE: 638.56 mGycm TECHNIQUE: Helical axial images of the head were obtained without IV contrast. Automated exposure con trol was utilized for the study. A dose lowering technique was utilized adhering to the principles o f ALARA. FINDINGS: No acute intracranial hemorrhage, midline shift or mass effect is present. Ventricular syst em is normal. Basal cisterns are patent. There are no extra-axial collections. Subtle hypodensity wit hin the superior medial left frontal lobe likely corresponds to the acute infarct on MRI. This repres ents expected evolution. White matter hypodensities suggest mild small vessel disease. IMPRESSION: Subtle white matter hypodensity within the superior medial left frontal lobe which repre sents the acute infarct shown on MRI. No mass effect. No hemorrhage. ACT 112: Negative or not required by law. Electronically signed by: Bob Strong M.D. 06/19/2022 10:53 AM
--- NOTE | 2022-06-19 11:45 | Neurology Consultation ---
Date of Consultation June 19, 2022 Assessment & Plan (1) Acute stroke due to ischemia: (2) Right leg weakness: (3) Aphasia due to acute cerebrovascular accident (CVA): Plan 66-year-old female presenting with acute right lower extremity weakness that has significantly worsened since her initial evaluation in the emergency department. She also has mild associated proximal right upper extremity weakness and has developed some difficulty with expressive speech. Her MRI reveals an evolving infarct within the left frontal lobe, looks like an anterior cerebral artery territory ischemic infarct. No evidence of hemorrhagic transformation on follow-up CT of the head this morning. No significant vascular lesion identified on CT angiography of the head and neck. No known history of atrial fibrillation although patient does have a history of insulin-dependent diabetes mellitus which has been suboptimally controlled based on recent hemoglobin A1c. History also notable for dyslipidemia with poor tolerance to statins, and hypertension for which she is prescribed losartan and hydrochlorothiazide. She is a former smoker, quit about 30 years ago. Patient will need a transthoracic echocardiogram with bubble study. Agree with starting aspirin 81 mg/day. Allow for permissive hypertension, acute systolic blood pressure goal 140 to 160 mmHg. Consultations with PT/OT/speech therapy. Would recommend mobile cardiac outpatient telemetry as well. Patient will need ongoing improved control of her insulin-dependent diabetes mellitus. The patient's neurologic status declines further, would recommend obtaining a repeat noncontrast brain MRI to reassess her acute ischemic stroke burden. The MRI done last night at around 6 PM revealed only a faint area of restricted diffusion within the left TEE territory. I expect the actual extent of her stroke is a bit larger given her current examination findings which now seems to include a mild aphasia. Again, there is no large vessel occlusion or other significant abnormality identified on CT angiography of the head or neck. She would not be a candidate for vascular intervention such as thrombectomy at a tertiary center. Above management discussed with Dr. Mueller, hospitalist physician, as well as patient's at bedside this morning. History of Present Illness Reason for Consultation: RLE weakness Requesting Physician: Rama Barron PA-C Attending Physician: Valorie Mueller MD History of Present Illness The patient is a 66-year-old female who presented to the emergency department yesterday afternoon with a chief complaint of right leg weakness and associated low back pain. She recalled having a similar episode of right leg weakness about 1 week prior, but with faster resolution. She had intact strength on examination at that time although appeared to have a limp while walking. She had a CT of the brain that was negative for hemorrhage or acute process. A CT of the lumbar spine was also fairly unrevealing. Stroke was considered in the initial differential diagnosis although deficits were quite subtle and she was not felt to be a candidate for administration of thrombolytic therapy. She was admitted to the [facility] for further evaluation and management. Additional testing has been completed at this point in time, including CT angiography of the head and neck, brain MRI, and lumbar spine MRI the lumbar spine MRI did reveal grade 1 anterolisthesis of L5 on S1 with moderate to severe bilateral neuroforaminal stenosis due to facet arthrosis. The brain MRI revealed a subtle area of restricted diffusion within the left periventricular white matter, left TEE territory, likely consistent with an acute infarct. I did independently review the images and was able to identify this finding. CTA of the head and neck was unremarkable. A follow-up CT of the head completed today is negative for hemorrhage although there is evidence of an evolving left frontal lobe infarct. I reviewed these images as well. Past medical history is notable for insulin-dependent diabetes mellitus. Hemoglobin A1c today was 11.2. There is a history of intolerance to statins due to myalgia. She is not on a statin as an outpatient. She is not on aspirin or blood thinners. No known history of atrial fibrillation, ECG completed yesterday revealed a normal sinus rhythm, 88 bpm. Patient's right lower extremity weakness has significantly progressed during her hospitalization. Patient has also exhibited some difficulty with speech. She denies headache or vision disturbance at this time. She does complain of some neck pain. Allergies Allergy/AdvReac Type Severity Reaction Status Date / Time psyllium Allergy Severe Anaphylaxis Verified 06/18/22 15:00 latex Allergy Intermediate itching Verified 06/18/22 15:00 pollen extracts Allergy Intermediate SNEEZING, Verified 06/18/22 15:00 CONGESTION walnut Allergy Mild Cough Verified 06/18/22 15:00 meperidine AdvReac Intermediate Gastrointestinal Verified 06/18/22 15:00 Upset onion AdvReac Intermediate Gastrointestinal Verified 06/18/22 15:00 Upset semaglutide [From Ozempic] AdvReac Intermediate Gastrointestinal Verified 06/18/22 15:00 Upset [id number]-[id number]-AdZ Reductase AdvReac Intermediate Muscle Pain Verified 06/18/22 15:00 Inhibitor [Zchezbx-Wmd-Vsh Reductase Inhibitor] insecticides Allergy Severe Anaphylaxis Uncoded 06/18/22 15:00 Home Medications Medication Instructions Recorded Confirmed Type acetaminophen 500 mg tablet 500 mg PO Q6H PRN Pain 05/20/19 06/18/22 History (Tylenol Extra Strength) albuterol sulfate 90 mcg/actuation 2 inh inhalation QID PRN sob 05/20/19 06/18/22 History aerosol inhaler hydrochlorothiazide 12.5 mg capsule 12.5 mg PO QAM 05/20/19 06/18/22 History ibuprofen 600 mg tablet 600 mg PO Q6H PRN Pain 05/20/19 06/18/22 History insulin glargine 100 unit/mL (3 18 unit subcut QAM 05/20/19 06/18/22 History mL) subcutaneous pen (Lantus Solostar U-100 Insulin) losartan 25 mg tablet 25 mg PO QAM 05/20/19 06/18/22 History omeprazole magnesium 20 mg 20 mg PO QAM 05/20/19 06/18/22 History tablet,delayed release (Prilosec OTC) Patient History Medical History Anxiety Asthma Cataract Depression Diabetes mellitus, type 2 IDDM Fatty liver GERD (gastroesophageal reflux disease) Hemorrhoids History of bursitis RT HIP History of DVT (deep vein thrombosis) LLE - >30 YEARS AGO History of migraine with aura HTN (hypertension) Hyperlipidemia NO MEDS Osteoarthritis Phlebitis H/O Sciatica TMJ click Surgical History H/O nephrostomy History of ankle surgery LEFT X 2, RT X 1 History of arthroscopy of left knee X 2 History of cholecystectomy History of colonoscopy History of D&C MULT History of exploratory laparotomy History of eye surgery RT - as a child History of left cataract surgery History of tooth extraction Nausea and vomiting after administration of anesthetic agent Family History Father Slow to wake up after anesthesia Social History Smoking Status: Former smoker Tobacco Type: Cigarettes Second Hand Exposure: No; Do You Dip or Chew Tobacco: No; Tobacco Cessation Education Requested by Patient: No Hx Alcohol Use: Yes Alcohol type: wine Hx Substance Use: No Preferred Language: Taiwanese Communication Ability: Effective Docent Coordinator Required: No Beliefs That Will Affect Care: None Current Living Situation: Family Feels Safe at Home: Yes Assistive Devices: Cane and Glasses Review of Systems Constitutional: no fever and no chills Eyes: no blind spots and no diplopia Ear, Nose, Mouth, Throat: no ear pain and no hearing loss Respiratory: no cough and no dyspnea Cardiovascular: no chest pain and no palpitations Gastrointestinal: no nausea and no vomiting Genitourinary: no dysuria Musculoskeletal: + back pain and + neck pain; no myalgia Integumentary: no rash and no lesions Neurologic: as per Subjective / HPI Psychiatric: no depression and no anxiety Hematologic / Lymphatic: no easy bleeding and no easy bruising Exam (Neuro) Constitutional: well developed and well nourished; no acute distress Eyes: normal visual michaels by confrontation, PERRL, normal accommodation and EOM intact bilaterally; no fundoscopic abnormality, no nystagmus and no papilledema Cardiovascular: Vessels: normal carotid upstroke; no carotid bruit Neurologic: Oriented to:: Person, Place and Time Memory: Short Term Intact and Remote Intact Attention: Span Intact and Concentration Intact Language: Naming Objects and Repeating Phrases Speech Fluency: Dysfluency; negative Dysarthria Speech Aphasia: Aphasia (Mild expressive aphasia noted) Fund of Knowledge: Current Events, Past History and Vocabulary Cranial Nerves: Normal II (Visual michaels full to confrontation, visual acuity normal), III, IV, (Pupils equal round reactive to light and accommodation, eye movements normal), V (Facial sensation intact), VII (There is no facial droop or weakness), VIII (Hearing intact), IX, X (Palate elevates to midline), XI (Shoulder shrug intact) and XII (Tongue protrudes to midline) Motor Strength: negative Normal Lower Extremities (Right lower extremity 0/5), Normal Upper Extremities (4/5 strength for the proximal right upper extremity) or Pronator Drift Motor Tone: Normal Lower Extremities and Normal Upper Extremities Muscle Bulk/Involuntary Movements: No Involuntary Movements; negative Muscle Atrophy Sensation: Light Touch Intact, Pain/Temperature Intact, Vibration Intact and Proprioception Intact Coordination: Finger-Nose Abnormal Laterality: Right and Heel-Carter Abnormal Laterality: Right; negative Dysdiadochokinesia Deep Tendon Reflexes: Rt Triceps: 2+, Lt Triceps: 2+, Rt Biceps: 2+, Lt Biceps: 2+, Rt Brachioradialis: 2+, Lt Brachioradialis: 2+, Rt Patellar: 3+, Lt Patellar: 2+, Rt Ankle: 3+ and Lt Ankle: 2+ Special Tests: Babinski Present (Prominent right Babinski) Details: Gait cannot be tested Results & Data ([facility]) Vital Signs (Past 12 Hours) Vital Signs Temp Pulse Pulse Resp BP Pulse Ox O2 Del Method 06/19/22 07:51 37.4 C 79 20 149/65 H 98 Room Air 06/19/22 04:17 36.7 C 83 18 146/73 H 96 Room Air 06/18/22 23:38 92 H Laboratory Results WBC 8.83, hemoglobin 9.5, hematocrit 31.9, MCV 66.0, platelet count 381, sodium 139, potassium 3.0, BUN 11, creatinine 0.54, glucose 201, hemoglobin A1c 11.2, magnesium 1.8, AST 20, ALT 23, high-sensitivity troponin 5.9, triglycerides 647, cholesterol 250, HDL 36, LDL could not be performed due to significantly elevated triglycerides, TSH 1.[address] of the head, CT angiography of the head and neck, brain MRI, and lumbar spine MRI are as described in the HPI, I independently reviewed these images. Electrocardiogram reveals a normal sinus rhythm, 88 bpm. PG Care Time/CCT Total # of Minutes Spent Total Time Spent with Patient: Total time spent is greater than 50% in coordination of care (as documented) at patient's floor/unit and/or counseling patient: 90 minutes Coding Level of Care Code 67142 INT INP/OBS CARE 3/75MIN Diagnoses Acute stroke due to ischemia I63.9 Right leg weakness R29.898 Aphasia due to acute cerebrovascular accident (CVA) I63.9; R47.01
--- NOTE | 2022-06-19 15:54 | Hospitalist Progress Note ---
Date of Service June 19, 2022 Assessment & Plan (1) Right leg weakness: (2) Abnormal finding on urinalysis: Plan: -continue ceftriaxone, follow up urine culture (3) Diabetes mellitus, type 2: Plan: -poorly controlled. See #7 below (4) HTN (hypertension): Plan: -hold lisinopril, HCTZ to allow for permissive hypertension. When able to resume antihypertensives, would resume only lisinopril. Avoid HCTZ with electrolyte derangements observed here (5) Dyslipidemia: Plan: -Poorly controlled. See #7 below (6) GERD (gastroesophageal reflux disease): Plan: -Already on PPI. Needs OP GI evaluation for occult bleed. Avoid NSAIDs. (7) Acute stroke due to ischemia: Plan: -Multiple co-morbidities. Will need risk reduction -MRI brain shows subtle left acute CVA. Symptoms worsening. Repeat CT head this morning again shows acute stroke, no bleed. Appreciate Neurology input, will repeat MRI brain now -HA1c 11.2% (previously 14.6%). On lantus 18 units daily at home which she is also on here. BS reasonably well controlled currently. May benefit from addition of metformin at discharge. -TG markedly elevated at 647, Direct LDL ordered for AM. Started fenofibrate. Patient noted to have statin intolerance, will need follow up with her PCP to evaluate for Rapatha -With her evolving symptoms, would allow for permissive hypertension currently -continue aspirin 81mg daily -TTE results noted (8) Microcytic anemia: Plan: -Acute on chronic -Check iron studies with AM labs. For complete workup, B12, folate levels also ordered -Will need OP GI evaluation for occult bleed, especially now with plan to be on aspirin. Noted that she was on ibuprofen PRN previously--this was discontinued here Plan DVT ppx-- SCDs. No AC for now with worsening anemia. Admission and Anticipated Discharge Date Admission Date: June 18, 2022 Subjective Now with worsening right leg weakness and difficulty speaking (she reports symptoms worsened overnight) Physical Exam Physical Exam: Non toxic, no acute distress Respiratory: Breathing comfortably on room air, no wheezing/rhonchi/rales Cardiovascular: regular rate and rhythm, no murmurs/rubs/gallops Gastrointestinal (Abdomen): soft, non tender Musculoskeletal: No edema Neurologic: 0/5 strength RLE (yesterday was 4/5), +dysarthria, +right hand drift Results & Data Results & Data ([facility]) Vital Signs (Past 12 Hours) Vital Signs Temp Pulse Resp BP Pulse Ox O2 Del Method 06/19/22 15:15 36.7 C 84 20 126/64 97 Room Air 06/19/22 11:53 36.6 C 97 H 20 173/92 H 97 Room Air 06/19/22 07:51 37.4 C 79 20 149/65 H 98 Room Air 06/19/22 04:17 36.7 C 83 18 146/73 H 96 Room Air
--- NOTE | 2022-06-19 18:21 | Magnetic Resonance Report ---
MR brain wo con CLINICAL HISTORY: worsening stroke symptoms TECHNIQUE: Multiplanar and multisequence MR images of the brain were obtained without intravenous con trast. Comparison: Comparison is made to MRI brain 06/18/2022 FINDINGS: No abnormal restricted diffusion is identified. Previously noted left supraventricular white matter i nfarct is better defined on today's exam. It may be slightly enlarged, measuring approximately 36 x 9 mm compared to 30 x 8 mm. Mild white matter edema is seen. Expected age-related atrophy is noted. No mass is seen. There is no mass effect or midline shift. There is no evidence of acute intraparenchym al hemorrhage. No extra axial fluid collections are seen. The corpus callosum, pituitary gland, and c erebellar tonsils appear grossly unremarkable. Flow voids of the major intracranial arterial vessels are identified. The imaged portions of the para nasal sinuses, mastoid air cells, and orbits are unremarkable. IMPRESSION: Redemonstration of left supraventricular white matter infarct,, more pronounced than in the prior exa m and possibly minimally enlarged, without hemorrhagic transformation. ACT 112: Negative or not required by law. Electronically signed by: Delroy Mcfadden M.D. 06/19/2022 6:19 PM
--- NOTE | 2022-06-20 04:28 | Electrocardiogram Report ---
Test Reason : Blood Pressure : / mmHG Vent. Rate : 088 BPM Atrial Rate : 088 BPM P-R Int : 128 ms QRS Dur : 096 ms QT Int : 392 ms P-R-T Axes : 050 -24 019 degrees QTc Int : 474 ms Normal sinus rhythm Nonspecific ST abnormality RSR' or QR pattern in V1 suggests right ventricular conduction delay Abnormal ECG When compared with ECG of 01-OCT-2017 13:58, No significant change was found Confirmed by Tae Mendez ([id number]) on 06/20/2022 4:27:48 AM Referred By: REFERRED SELF Confirmed By:Tae Mendez
[2022-06-20] MEDS: SODIUM CHLORIDE 0.9% 1000ML 1,000 ML IV SCH ×2 (04:58→19:02)
[2022-06-20 06:35] LABS: Hematocrit (blood only) 32.9 % (37.0-47.0); Hemoglobin 9.9 g/dl (12.0-16.0); Mean Corpuscular Hemoglobin 20.1 pg (25.0-34.0); Mean Corpuscular Hgb Conc 30.1 g/dL (32.0-36.0); Mean Corpuscular Volume 66.9 fL (80.0-100.0); Mean Platelet Volume 10.5 fL (9.4-12.4); Platelet Count 376 K/uL (130-400); RDW Coefficient of Variation 17.6 % (11.5-14.5); Red Blood Count 4.92 M/uL (4.20-5.40); White Blood Count 7.38 K/ul (4.8-10.8)
[2022-06-20 07:06] LABS: BUN Creatinine Ratio 21.1 (10-20); Creatinine Clr Calc Pharmacy 75.7 ml/min; Est GFR (Non-African American) 96.6 ml/min; Magnesium 1.7 mg/dl (1.7-2.4); Potassium 3.1 mmol/L (3.5-5.1)
[2022-06-20 07:34] LABS: Vitamin B12 183 pg/ml (180-914)
[2022-06-20] MEDS ORDERED: POTASSIUM CHLORIDE CRTAB 20 MEQ TABCR PO STA (07:41)
[2022-06-20] MEDS ORDERED: POTASSIUM CHLORIDE / WTR 10 MEQ/100 ML PLCT IV ONE (07:41)
[2022-06-20] MEDS ORDERED: MAGNESIUM SULFATE / D5W 1 GM/100 ML BAG IV ONE (07:42)
[2022-06-20] MEDS: POLYETHYLENE (MIRALAX) 17 GM PACK PO PRN (08:41)
[2022-06-20] MEDS: ACETAMINOPHEN 325 MG TAB PO PRN (08:41)
[2022-06-20] MEDS: ASPIRIN 81 MG ECTAB PO SCH (08:45)
[2022-06-20] MEDS: FENOFIBRATE NANOCRYSTALLIZED 145 MG TABLET PO SCH (08:45)
[2022-06-20] MEDS: INSULIN ASPART PER UNIT SC SCH ×4 (08:46→20:42)
[2022-06-20] MEDS: cephALEXin 500 MG CAP PO SCH ×4 (08:46→20:41)
[2022-06-20] MEDS: PANTOprazole 40 MG TAB PO SCH (08:46)
[2022-06-20] MEDS: LANTUS PER UNIT CHARGE SQ SCH (08:52)
--- NOTE | 2022-06-20 08:56 | Neurology Progress Note ---
Date of Service June 20, 2022 Assessment & Plan (1) Acute stroke due to ischemia: (2) Right leg weakness: (3) Aphasia due to acute cerebrovascular accident (CVA): Plan This patient suffered an acute left watershed infarct ( or TEE ) that evolved over 24-48 hours starting June 18. On examination, the patient has a significant dysarthria and perhaps a very mild motor aphasia. She also has mild diffuse weakness in the right upper extremity and severe weakness in the right lower extremity ( although she is starting to make movements and improvement in that leg). Her NIH Stroke Scale equals 5 ( 3 for the right leg, 1 for dysarthria and 1 for aphasia) The patient has multiple risk factors for stroke including former cigarette smoker, hypertension, diabetes, and dyslipidemia. Unfortunately she has side effects and poor tolerance to statins. I am uncertain which statins she has tried. The patient has iron deficiency anemia and a borderline low B12 level. Recommendations: 1. given the severity of the stroke and some questionable vascular issues on CT angiography, I would add clopidogrel 75 mg to the 81 mg aspirin tablet daily. I would keep her on both aspirin and clopidogrel daily for 3 weeks then discontinue the aspirin and continue clopidogrel. 2. Control blood pressure as you are doing, aiming for a mean arterial pressure of 95-100. 3. Control glucose as you are doing, trying to lower hemoglobin A1c below 9. 4. this patient would be an excellent high dose statin candidate. I am uncertain if she has tried rosuvastatin, but she should be on something to lower her lipids. 5. physical, occupational, and speech therapy consult. This patient would be an excellent rehabilitation hospital candidate 6. Consider adding multiple vitamin with B12 daily. Overall, I spent a total of 60 minutes with this case, including review of records, review of CT angiography and MRI films, direct evaluation the patient at bedside, and discussion of the case with the patient and RN at bedside, Dr. Del Rio ( radiology) and Dr. Mueller, including differential diagnosis and treatment options. Admission and Anticipated Discharge Date Admission Date: June 19, 2022 Subjective Patient currently has no complaints of pain or headache. She has trouble getting words out that she thinks of and knows her speech is off. She knows that her right leg is very weak although getting a little better today and her right arm is somewhat weak. unlike admission, She is not in pain with her lumbar spine. Blood pressure is 148/72. She has anemia with low iron. Potassium was slightly low and glucose was 165 today. Total cholesterol was 250 and triglycerides 647. B12 was borderline at 183. hemoglobin A1c was 11.2. Nursing reports no new issues overnight. Echocardiogram showed moderate LVH but no shunt or other abnormalities. I reviewed CT angiography of the head and neck with Dr. Strong. There is a concern regarding a compromised/stenotic left anterior cerebral artery. the rest of the CT angiography of the head and neck or unremarkable. I reviewed the MRIs of the brain dated June 18 and June 19. There was an involving infarct in the left supra ventricular space which to me seem like a watershed infarct. There was some acute medial infarct and this could be compromise of the anterior communicating artery on the left. I reviewed the MRI films with Dr. De La Cruz The patient has a history of hypertension, diabetes, dyslipidemia, and was a former smoker. She was on no antiplatelet medication prior to admission. Results & Data ([facility]) Vital Signs (Past 12 Hours) Vital Signs Temp Pulse Pulse Resp BP Pulse Ox O2 Del Method 06/20/22 08:09 36.6 C 72 16 148/72 H 98 Room Air 06/20/22 07:10 72 06/20/22 04:00 36.7 C 82 18 149/86 H 96 Room Air 06/19/22 23:56 36.8 C 85 18 154/81 H 95 Room Air 06/19/22 22:00 80 Exam (Neuro) Physical Exam: She is awake and alert. Speech is very dysarthric. She has possibly some motor aphasia ( some inability to get words out that she know she wants to say) but there does not seem to be any receptive aphasia. She can name items, read words and sentences ( although she is dysarthric) follow one-step commands and identify abnormalities and described them, looking at a picture. Extraocular eye muscles are intact without nystagmus and her vision seems intact bilaterally. There is no facial droop and she moves her face bilaterally well. Tongue is midline and palate raises well. Neck is supple. With outstretched arms, there is no obvious drift. She does not have any ataxia or tremor. Strength is 5/5 in all major muscle groups in the left arm and left leg both proximally and distally. Strength is 4/5 diffusely in the right upper extremity and she has Very mild clumsiness and decreased facility in the right hand. the right lower extremity is 1/5 distally. Reflexes are 2/4 in all 4 limbs and toes are upgoing on plantar stimulation on the right and downgoing with plantar stimulation on the left. Sensory examination is intact in the right face arm and leg. PG Care Time/CCT Total # of Minutes Spent Total Time Spent with Patient: Total time spent is greater than 50% in coordination of care (as documented) at patient's floor/unit and/or counseling patient: Coding Level of Care Code 20781 SUB INP/OBS CARE 3/50MIN Diagnoses Acute stroke due to ischemia I63.9 Right leg weakness R29.898 Aphasia due to acute cerebrovascular accident (CVA) I63.9; R47.01 Time Spent (min) 60
--- NOTE | 2022-06-20 14:23 | Pharmacy Report ---
- Date of Service June 20, 2022 - Pharmacy CVA/TIA Medication Review Medications to Prevent Stroke handout has been added to the patients discharge packet. Antiplatelet(s) * ASA 81mg PO daily * Neuro recs: DAPT x3 weeks, then d/c ASA and continue Plavix -- Plavix has not yet been ordered for patient; provider notified. Cholesterol * High intensity statin: recommended by neuro, but not yet ordered; provider notified. * Consider: rosuvastatin 20 mg daily, atorvastatin 40 mg daily, OR atorvastatin 80 mg daily DVT Prophylaxis * SCD knee * Pharmacologic DVT prophylaxis deferred due to anemia Therapeutic Anticoagulation * No history of Afib/Aflutter noted Type 2 Diabetes * Patient has T2DM (HbA1c: 11.2%) -- neuro recs goal A1c <9% * Pt is not currently prescribed any DM medications with CVD benefit; provider notified. * If not initiated prior to discharge, diabetes medication with proven CVD benefit will be deferred to their outpatient provider due to familiarity with risks/benefits of such therapies. "Medications to prevent stroke" handout has already been added to the patient's discharge packet, which instructs the patient to follow up with their outpatient provider to evaluate which diabetes medication with proven CVD benefit is best for them
--- NOTE | 2022-06-20 15:51 | Hospitalist Progress Note ---
Date of Service June 20, 2022 Assessment & Plan (1) Right leg weakness: (2) Abnormal finding on urinalysis: (3) Diabetes mellitus, type 2: (4) HTN (hypertension): (5) Dyslipidemia: (6) GERD (gastroesophageal reflux disease): Plan (1) Right leg weakness: (2) E coli UTI Plan: -s/p ceftriaxone. urine culture positive for E coli pansensitive--transition to keflex to finish 5 day course (3) Diabetes mellitus, type 2: Plan: -poorly controlled. See #7 below (4) HTN (hypertension): Plan: -hold lisinopril, HCTZ to allow for permissive hypertension. When able to resume antihypertensives, would resume only lisinopril. Avoid HCTZ with electrolyte derangements observed here (5) Dyslipidemia: Plan: -Poorly controlled. See #7 below (6) GERD (gastroesophageal reflux disease): Plan: -Already on PPI. Needs OP GI evaluation for occult bleed. Avoid NSAIDs. (7) Acute stroke due to ischemia: Plan: -Multiple co-morbidities. Will need risk reduction -MRI brain shows subtle left acute CVA. Symptoms worsening. Repeat CT head 3/2 again shows acute stroke, no bleed. Repeat MRI brain 3/2 again shows acute stroke possibly slightly larger than prior. Appreciate Neurology input. -HA1c 11.2% (previously 14.6%). On lantus 18 units daily at home which she is also on here. BS reasonably well controlled currently. Would benefit from addition of metformin at discharge. -TG markedly elevated at 647, Direct LDL 143. Started fenofibrate. Patient noted to have statin intolerance, will need follow up with her PCP to evaluate for Rapatha or other PCSK 9 inhibitor -continue aspirin 81mg daily, add plavix (will be on DAPT x 3 weeks then after that plavix only) -TTE results noted (8) Microcytic anemia: Plan: -Acute on chronic -Will need OP GI evaluation for occult bleed, especially now with plan to be on aspirin/plavix Noted that she was on ibuprofen PRN previously--this was discontinued here -B12 borderline--will start supplement --Iron deficiency--give 1 dose IV iron today then oral tomorrow (9) Hypokalemia -due to being on HCTZ (this medicine has been discontinued) -s/p repletions yesterday and again today -will repeat BMP and Mg today (10) DVT ppx-- SCDs. No AC for now with worsening anemia. (11) Disposition--[facility]. Likely tomorrow if cleared by Neurology Admission and Anticipated Discharge Date Admission Date: June 19, 2022 Subjective Able to wiggle her right toes Speech seems mildly improved Sat in chair for most of the afternoon Complaining of muscle cramps Physical Exam Physical Exam: Being repositioned back in bed by nursing, appears well, no acute distress Respiratory: breathing comfortably on room air, no wheezing/rhonchi/rales Cardiovascular: regular rate and rhythm, no murmurs/rubs/gallops Gastrointestinal (Abdomen): soft, non tender Neurologic: right leg weakness (able to wiggle toes only), +dysarthria Results & Data Results & Data ([facility]) Vital Signs (Past 12 Hours) Vital Signs Temp Pulse Pulse Resp BP Pulse Ox O2 Del Method 06/20/22 12:18 36.8 C 87 16 144/76 H 95 Room Air 06/20/22 08:09 36.6 C 72 16 148/72 H 98 Room Air 06/20/22 07:10 72 06/20/22 04:00 36.7 C 82 18 149/86 H 96 Room Air
[2022-06-20] MEDS ORDERED: CLOPIDOGREL BISULFATE 75 MG TAB PO ONE (16:15)
[2022-06-20] MEDS ORDERED: IRON SUCROSE 200 MG in 0.9 % SODIUM CHLORIDE 100 ML IV ONE (16:30)
[2022-06-20 16:38] LABS: Calcium 9.3 mg/dl (8.5-10.1); Creatinine Clr Calc Pharmacy 61.7 ml/min; Est GFR (African American) 104.6 ml/min; Est GFR (Non-African American) 90.3 ml/min; Magnesium 2.1 mg/dl (1.7-2.4); Potassium 3.5 mmol/L (3.5-5.1)
[2022-06-20] MEDS: DOCUSATE SODIUM 100 MG CAP PO SCH (20:41)
[2022-06-21] MEDS: ACETAMINOPHEN 325 MG TAB PO PRN (08:49)
[2022-06-21] MEDS: INSULIN ASPART PER UNIT SC SCH ×2 (08:49→12:05)
[2022-06-21] MEDS: cephALEXin 500 MG CAP PO SCH ×2 (08:50→12:05)
[2022-06-21] MEDS: LANTUS PER UNIT CHARGE SQ SCH (08:50)
[2022-06-21] MEDS: POLYETHYLENE (MIRALAX) 17 GM PACK PO PRN (08:50)
[2022-06-21] MEDS: DOCUSATE SODIUM 100 MG CAP PO SCH (08:51)
[2022-06-21] MEDS: ASPIRIN 81 MG ECTAB PO SCH (08:51)
[2022-06-21] MEDS: PANTOprazole 40 MG TAB PO SCH (08:51)
[2022-06-21] MEDS: SODIUM CHLORIDE 0.9% 1000ML 1,000 ML IV SCH (08:51)
[2022-06-21] MEDS: FENOFIBRATE NANOCRYSTALLIZED 145 MG TABLET PO SCH (08:51)
[2022-06-21] MEDS ORDERED: FERROUS SULFATE 325 MG TAB PO SCH (09:00)
[2022-06-21] MEDS ORDERED: CLOPIDOGREL BISULFATE 75 MG TAB PO SCH (09:00)
[2022-06-21] MEDS ORDERED: CYANOCOBALAMIN (B-12) 500 MCG TABLET PO SCH (09:00)
[2022-06-21] MEDS ORDERED: MULTIVITAMIN TAB PO SCH (09:00)
[2022-06-21] MEDS ORDERED: ROSUVASTATIN CALCIUM 10 MG TAB PO SCH (10:00)
[2022-06-21] MEDS ORDERED: STROKE PATIENT DISCHARGE STA (10:36)
[2022-06-22] MEDS ORDERED: ROSUVASTATIN CALCIUM 20 MG TAB PO SCH (09:00)
--- NOTE | 2022-06-24 22:21 | Discharge Summary ---
Date of Service June 21, 2022 Date of discharge June 21, 2022 Admission HPI Per Admitting Provider Patient is 66-year-old female with PMH HTN, dyslipidemia, insulin-dependent DM II, GERD, NAFLD presented to ER with complaint of right leg weakness. Patient states this morning she woke up and was feeling fine. She reports she showered and then took her morning medicines. When she was attempting to get dressed she had onset of right leg weakness described from right hip to right ankle. Patient reports has some pressure to right lumbar spine. As she was getting dressed she felt her right leg gave out. Patient states since has been having right leg weakness and having difficulty walking. He also feels like she is leaning to the right. Denies speech changes, facial drooping. Patient states couple weeks ago had episode of right leg weakness that occurred while showering that resolved within an hour after sitting. Patient denies any known injury or trauma. Denies leg paresthesias. Denies dysuria, hematuria, urinary frequency, or urgency. Denies fever/chills, diaphoresis, N/V/D/C, CLOUD, dizziness, syncope, vision changes, neck pain, CP, SOB, orthopnea, palpitations, cough, sore throat, choking, otalgia, rhinorrhea, abdominal pain, extremity edema, rashes. In ER patient had difficulty with ambulating secondary to reported right leg weakness. 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 Discharge Exam Doing well Dysarthria improved Right leg weakness improved Discharge Data Allergies Allergy/AdvReac Type Severity Reaction Status Date / Time psyllium Allergy Severe Anaphylaxis Verified 06/18/22 15:00 latex Allergy Intermediate itching Verified 06/18/22 15:00 pollen extracts Allergy Intermediate SNEEZING, Verified 06/18/22 15:00 CONGESTION walnut Allergy Mild Cough Verified 06/18/22 15:00 meperidine AdvReac Intermediate Gastrointestinal Verified 06/18/22 15:00 Upset onion AdvReac Intermediate Gastrointestinal Verified 06/18/22 15:00 Upset semaglutide [From Ozempic] AdvReac Intermediate Gastrointestinal Verified 06/18/22 15:00 Upset [id number]-[id number] Reductase AdvReac Intermediate Muscle Pain Verified 06/18/22 15:00 Inhibitor [Xncisdb-Kig-Mpe Reductase Inhibitor] insecticides Allergy Severe Anaphylaxis Uncoded 06/18/22 15:00 Consultations 06/18/22 14:42 ED Decision to Admit Stat 06/18/22 19:02 Consult Neurology Routine Ordered Studies 06/18/22 11:12 CT lumbar spine wo con Stat 06/18/22 11:14 CT head/brain wo con Stat 06/18/22 15:52 CT angio head w con Urgent CT angio neck with con Urgent MR brain wo con Urgent 06/18/22 15:52 MR lumbar spine wo con Routine 06/19/22 09:22 CT head/brain wo con Stat 06/19/22 15:01 MRI Brain [MR brain wo con] Urgent Hospital Course (1) Right leg weakness: (2) Abnormal finding on urinalysis: (3) Diabetes mellitus, type 2: (4) HTN (hypertension): (5) Dyslipidemia: (6) GERD (gastroesophageal reflux disease): Plan Ms Aleja Valverde is a 66 year old female with history of IDDM, hypertension, hyperlipidemia with statin intolerance, obesity, former smoker presents to the ER with lower back pain and right leg weakness. She had a CT head and CTA head and neck which were unremarkable. And MRI of the brain revealed a left TEE stroke. By day 2 of admission her right leg weakness worsened and she also had dysarthria so a repeat CT head and MRI brain were obtained. MRI brain showed mildly increased stroke. She was already on aspirin 81mg daily so she was also placed on plavix with plan for 3 weeks of DAPT then afterwards will be maintained on plavix alone. Her lipid panel revealed a very elevated TG level (647) and an LDL of 143. She reports a history of fenofibrate and lovastatin intolerance. She has never been on rosuvastatin and was agreeable to starting this at discharge. She will need to follow up with her PCP for repeat lipid panel and to monitor response to rosuvastatin. If she can not tolerate statin therapy at all, would need to investigate coverage for PCSK 9 inhibitor. Her HA1c here was 11.2% while she was only on lantus 18 units daily. While here, she was also placed on premeal insulin coverage with improved glycemic control. She should follow up with her PCP for further management. Would recommend referral to see endocrinology. While here, her lisinopril and HCTZ were initially held to allow for permissive HTN. Later, her lisinopril was restarted. Her HCTZ was discontinued altogether due to hypokalemia and electrolyte imbalance while on it. Additionally, her UA was abnormal with positive urine culture. She was not septic. She was discharged on a 5 day course of keflex for UTI. Noted to also have chronic microcytic anemia. Iron studies here was low. B12 also borderline low. She received 1 dose IV iron and started on oral supplements as well as B12 supplements. She has a history of GERD and is on PPI which was switched to protonix to avoid interaction with plavix. She should have outpatient GI workup for her anemia especially with plan to be on plavix indefinitely. For her acute stroke, she was evaluated by PT/OT and recommended inpatient rehab and she was discharged to [facility]. Incidental findings that need follow up with PCP: Moderate to severe bilateral neural foraminal stenosis at L5-S1 Pulmonary nodules (patient is a former smoker). Needs surveillance Total Time Total Time Spent Total Time Spent (In Minutes): 60 Discharge Plan Discharge Items Patient Disposition: Transfer Inpatient Rehab Fac Reason For Visit: WEAKNESS Discharge Diagnosis: Left TEE stroke (right leg weakness, dysarthria, mild right arm weakness) Condition on Discharge: Fair Activity: Resume your previous activity Non-emergency contact: Primary Care Provider and Neurologist Call non-emergency contact if: you have any medication questions and your symptoms worsen Follow-up/Referrals: Sincere Moncada MD [Physician] - Scott Colindres DO [Primary Care Provider] - Diet: Carb Consistent or DM2 and Heart Healthy Addtl Attending Provider Instructions: You were admitted with a new stroke. You had medication changes while here: For your stroke -Aspirin 81mg daily and Plavix 75mg daily for 3 weeks. After 3 weeks, you will continue on plavix only (aspirin may be discontinued) -Rosuvastatin 20mg daily was started For your Diabetes -You can continue Lantus 18 units daily and we are adding Aspart Pre meal coverage (See Below for instructions) -You should speak with your Family doctor about other medications to better control your Diabetes, or ask for a referral to see an Mechanical Test Engineer -Your A1c was 11.2% For your blood pressure -Your HCTZ was discontinued due to significant electrolyte abnormalities while on this -You may continue losartan 25mg daily--This may need to be increased. Please follow up with your Family doctor in 1 week For your cholesterol -Your Triglycerides and LDL is very high. You were started on Rosuvastatin 20mg daily. If you do not tolerate this, you can be switched to another statin or start injectable medications (PCSK 9 inhibitors). Please follow up with your family doctor You were found to have anemia -Your iron level was low. You received 1 dose of IV iron here and started on oral iron. This may make you constipated so you will be started on colace and miralax as needed -Your B12 was also borderline low. You were started on a multivitamin and B12 supplement. -Please follow up with your family doctor for referral to see a Wood Machinist for your anemia. -Your ibuprofen was discontinued. If you have pain, you may take acetaminophen as needed (not to exceed 3 grams a day). You were found to have a UTI -you got ceftriaxone IV here and will be discharged on Keflex to finish 5 day course. For your GERD -Omeprazole was discontinued due to interaction with Plavix -You were started on protonix 40mg daily instead. Please follow up with your Family doctor in 2 weeks to discuss your medication changes. Please follow up with Neurology for your stroke Aspart Correctional Scale --Goal BSG Range: Low 120_mg/dL, High _160 mg/dL --Correction Factor: 30_mg/dL/unit --Carbohydrate ratio = _10_ g/unit --BSGs ACHS if eating, q6h if npo Pending Studies at Discharge: No Stand-Alone Forms: My [facility] [employer], Medications to Prevent Stroke Skilled Items Patient informed of condition?: Yes DNR: No Discharge Level of Care: Acute rehab Communicable Disease: No Discharge Prognosis: Stable Lines: None Urinary Catheter: No Medications and DC Order Prescriptions: New polyethylene glycol 3350 [Miralax] 17 gram Powder In Packet 17 g PO DAILY PRN (Reason: constipation) 14 Days Qty: 14 0RF clopidogrel 75 mg Tablet 75 mg PO QAM 90 Days Qty: 90 0RF aspirin 81 mg Tablet,Delayed Release (Dr/Ec) 81 mg PO QAM 21 Days Qty: 21 0RF insulin aspart U-100 [Novolog U-100 Insulin aspart] 100 unit/mL Solution 1 sliding scale dose SC ACHS 30 Days Qty: 10 0RF docusate sodium 100 mg Capsule 100 mg PO BID 30 Days Qty: 60 0RF ferrous sulfate 325 mg (65 mg iron) Tablet,Delayed Release (Dr/Ec) 325 mg PO QAM 90 Days Qty: 90 0RF rosuvastatin [Crestor] 20 mg Tablet 20 mg PO QAM 90 Days Qty: 90 0RF cyanocobalamin (vitamin B-12) 500 mcg Tablet 500 mcg PO QAM 90 Days Qty: 90 0RF multivitamin with folic acid [Daily-Sergey (with folic acid)] 400 mcg Tablet 1 tab PO QAM 90 Days Qty: 90 0RF pantoprazole 40 mg Tablet,Delayed Release (Dr/Ec) 40 mg PO QAM 14 Days Qty: 14 0RF Continued acetaminophen [Tylenol Extra Strength] 500 mg Tablet 500 mg PO Q6H PRN (Reason: Pain) losartan 25 mg Tablet 25 mg PO QAM albuterol sulfate 90 mcg/actuation Hfa Aerosol Inhaler 2 inh INHALATION QID PRN (Reason: sob) insulin glargine [Lantus Solostar U-100 Insulin] 100 unit/mL (3 mL) Insulin Pen 18 unit SUBCUT QAM Discontinued hydrochlorothiazide 12.5 mg Capsule 12.5 mg PO QAM ibuprofen 600 mg Tablet 600 mg PO Q6H PRN (Reason: Pain) omeprazole magnesium [Prilosec OTC] 20 mg Tablet,Delayed Release (Dr/Ec) 20 mg PO QAM Discharge Orders: Discharge Order (Routine); Ordered 06/21/22 Ordered By: Valorie Mueller Admission Data Admit Date/Time: 06/19/22 15:41 Attending Provider: Valorie Mueller Admit Provider: Valorie Mueller Primary Care Provider: Scott Colindres Other Providers: Valorie Mueller ; Sincere Moncada ; [facility] Other Interventions: Discharge Summary Assessment (RN) Last Done: 06/21/22 11:49
== END 2022-06-21 13:50 | DRG 65 ==
LOC: 2N 10:37 → ED 10:37 → 2N 17:50